=== PATIENT | female | born 2000 | race African-American/Black ===

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

== ENCOUNTER 2018-01-28 22:20 | Emergency (ER) | payer OTHER ==
[~2018-01-28] VITALS: Ht 172.7 cm; Wt 79.4 kg
--- NOTE | ~2018-01-28 | EKG ---
[place] [address] [facility] [place] [address] ELECTROCARDIOGRAM REPORT Name: LENCHO ROSAS [facility]: [facility] [id number] Admission: 01/28/18 Attend Phys: Discharge: 01/29/18 Date of : [birth year] Report #: [id number] THIS REPORT FOR: //name// [facility] ED Test Date: 2018-01-28 Test Time: 22:33:42 Pat Name: LENCHO ARCOS ANTON Department: Room: Gender: F Sap Data Analyst: DENISE : 2000 Requested By: Billy Salcedo Order Number: [id number] MD: Oneal Jordan Measurements Intervals [place] Rate: 65 P: 30 RI: 157 QRS: 68 QRSD: 98 T: 29 QT: 402 QTc: 418 Interpretive Statements Sinus rhythm Normal tracing No previous ECG available for comparison Electronically Signed On 01-29-2018 8:36:16 [employer] by Oneal Jordan [email or web address] <ELECTRONICALLY SIGNED> By: Oneal Jordan MD, [facility] 01/29/18 [id number] Oneal Jordan MD, FACC /EPI
[~2018-01-28 22:20] MED LIST changes: +POLYMYXIN B/TMP10 ML OPHTHALMIC; +ZYRTEC10 MG PO
[2018-01-28] MEDS ORDERED: NORFLEX100 MG PO (23:18)
[2018-01-28] MEDS ORDERED: NAPROSYN500 MG PO (23:18)
[2018-01-29 00:04] VITALS: BP 132/79
== END 2018-01-29 00:05 | disposition home or self-care (01) ==
LOC: ER 22:20
DX: R09.1 Pleurisy (principal); M43.6 Torticollis